=== PATIENT | female | born 1995 | race Caucasian/White ===

== ENCOUNTER 2025-05-27 07:12 | Emergency (ER) | payer MEDICAID ==
[~2025-05-27] VITALS: Ht 160 cm; Wt 69.0 kg
[2025-05-27 07:17] VITALS: O2SAT 97
[2025-05-27 08:06] LABS: CLARITY URINE CLEAR (CLEAR); COLOR URINE ORANGE (YELLOW); GLUCOSE URINE NEGATIVE (NEGATIVE); KETONES URINE NEGATIVE (NEGATIVE); LEUKOCYTE ESTERASE URINE 3+ (NEGATIVE); NITRITE URINE NEGATIVE (NEGATIVE); OCCULT BLOOD URINE 3+ (NEGATIVE); PH URINE 6.0 (4.5-8.0); PROTEIN URINE 2+ (NEGATIVE); SPECIFIC GRAVITY URINE 1.009 (1.005-1.030); UROBILINOGEN URINE 0.2 E.U./dL (0.2-1.0)
[2025-05-27 08:08] LABS: BASOPHILS % 0.6 % (0.0-2.0); EOSINOPHILS % 0.9 % (0.0-5.0); HEMATOCRIT. 35.9 % (36.0-48.0); HEMOGLOBIN. 12.1 g/dL (12.0-16.0); LYMPHOCYTES % 12.1 % (20.0-50.0); MEAN PLATELET VOLUME 8.1 fl (7.4-10.4); MONOCYTES % 5.7 % (2.0-8.0); NEUTROPHILS % 80.7 % (40.0-76.0); PLATELET 236 x1000/uL (130-400); RED BLOOD CELL COUNT 4.01 mill/uL (4.2-5.4); RED CELL DISTRIBUTION WIDTH 14.1 % (11.6-14.6)
[2025-05-27 08:17] LABS: SQUAMOUS EPITHELIAL CELL URINE 1+ /lpf (RARE/1+)
[2025-05-27 08:18] LABS: RBC URINE 15-25 /hpf (0-2); WBC URINE 25-50 /hpf (0-2)
[2025-05-27 08:19] LABS: BACTERIA URINE 3+
[2025-05-27 08:28] LABS: CREATININE 0.5 mg/dL (0.6-1.0); UREA NITROGEN BLOOD 6 mg/dL (9-23)
[2025-05-27 08:30] LABS: HCG SCREEN POSITIVE
[2025-05-27 08:42] LABS: B-HCG QUANTITATIVE 21779 mIU/mL (<6)
[2025-05-27] MEDS ORDERED: NITR100C PO (09:52)
[2025-05-27] MEDS ORDERED: TOPUD PO (09:52)
[2025-05-27 10:25] VITALS: BP 98/55; PULSE 66; RESP 16; TEMP 36.9; O2SAT 100
== END 2025-05-27 10:29 | disposition home or self-care (01) ==
LOC: ER 07:27
DX: O09.292 Supervision of pregnancy with other poor reproductive or obstetric history, second trimester (principal); O20.0 Threatened abortion; O23.42 Unspecified infection of urinary tract in pregnancy, second trimester; Z3A.19 19 weeks gestation of pregnancy
CPT/HCPCS: 36415; 76805; 80048; 81003; 84702; 84703; 85025; 86850; 86900; 87077; 87186; 99284